=== PATIENT | female | born 1965 | race Caucasian/White ===

== ENCOUNTER 2021-05-14 14:32 | Inpatient (IN) | payer MEDICAID, OTHER ==
[~2021-05-14] VITALS: Ht 157 cm; Wt 64.0 kg
[2021-05-14] MEDS ORDERED: ACETAMINOPHEN 325 MG TABLET PO PRN (14:45)
[2021-05-14] MEDS ORDERED: ONDANSETRON 4 MG/2 ML (SDV) Z0FRAN IV PRN (14:45)
[2021-05-14] MEDS ORDERED: RT-ALBUTEROL/IPRATROPIUM 3 ML (DUONEB) VIAL IH PRN (14:45)
[2021-05-14] MEDS ORDERED: REMDESIVIR INJ 200 MG in NS (IVPB) 210 ML IV ONE (16:45)
[2021-05-14 17:02] VITALS: BP 114/63
[2021-05-14] MEDS ORDERED: MELA1TAB15 PO (18:10)
[2021-05-14] MEDS ORDERED: SODI51CR7 DT (18:10)
[2021-05-14] MEDS ORDERED: CETI10TA17 PO (18:10)
[2021-05-14] MEDS ORDERED: MULT1TAB59 PO (18:10)
[2021-05-14] MEDS ORDERED: TOLN133A TP (18:10)
[2021-05-14] MEDS ORDERED: DEXT15DR21 OP (18:10)
[2021-05-14] MEDS ORDERED: SALI45SP MM (18:10)
[2021-05-14] MEDS ORDERED: LEVE500T99 PO (18:10)
[2021-05-14] MEDS ORDERED: OMG1KC PO (18:10)
[2021-05-14] MEDS ORDERED: [UNRECOGNIZED DRUG - CODE] TP (18:10)
[2021-05-14] MEDS ORDERED: SIMV10TA26 PO (18:10)
[2021-05-14] MEDS ORDERED: PROM118S5 PO (18:10)
[2021-05-14] MEDS ORDERED: LORA-405 SL (18:10)
[2021-05-14] MEDS ORDERED: EUC50OIN2 TP (18:10)
[2021-05-14] MEDS ORDERED: TR1C15 TP (18:10)
[2021-05-14] MEDS ORDERED: LEVO112T55 PO (18:10)
[2021-05-14] MEDS ORDERED: ASCO100025 PO (18:10)
[2021-05-14] MEDS ORDERED: MELA1TAB16 PO (18:10)
[2021-05-14] MEDS ORDERED: BENZ100C18 PO (18:10)
[2021-05-14] MEDS ORDERED: GLY/85CR TP (18:10)
[2021-05-14] MEDS ORDERED: DONE10TA41 PO (18:10)
[2021-05-14] MEDS ORDERED: VITS42.53 TP (18:10)
[2021-05-14] MEDS: guaiFENesin SYRUP 100 MG/5 ML 10 ML (ROBITUSSIN SF) PO SCH ×2 (18:29→21:57)
[2021-05-14] MEDS: NS IV 1000 ML 1,000 ML IV SCH (18:29)
[2021-05-14] MEDS: ENOXAPARIN 40 MG/0.4 ML (LOVENOX) SYR SC SCH (18:48)
[2021-05-14] MEDS ORDERED: LORazepam 1 MG (ATIVAN) TAB PO PRN (19:00)
[2021-05-14] MEDS ORDERED: BENZONATATE 100 MG (TESSALON) CAPSULE PO PRN (19:00)
[2021-05-14 19:39] VITALS: BP 91/52
[2021-05-14] MEDS ORDERED: A & D OINTMENT 42.5 GM TUBE TOP SCH (20:00)
[2021-05-14] MEDS: ARTIFICAL TEARS 0.4 ML UNIT DOSE (REFRESH PLUS) OP SCH (21:49)
[2021-05-14] MEDS: SALIVA STIMULANT MOUTH SPRAY (BIOTENE) 1.5 OZ MM SCH (21:49)
[2021-05-14] MEDS: DONEPEZIL 10 MG (ARICEPT) TAB PO SCH (21:49)
[2021-05-14] MEDS: TRIAMCINOLONE 0.1% CR (KENALOG) 15 GM TUBE TP SCH (21:50)
[2021-05-14] MEDS: MELATONIN 10 MG TABLET PO SCH (22:22)
[2021-05-15 00:59] VITALS: BP 93/53
[2021-05-15 03:34] VITALS: BP 98/56
[2021-05-15] MEDS: NS IV 1000 ML 1,000 ML IV SCH ×2 (03:34→20:55)
[2021-05-15] MEDS: guaiFENesin SYRUP 100 MG/5 ML 10 ML (ROBITUSSIN SF) PO SCH ×6 (03:34→20:55)
[2021-05-15 05:57] LABS: HEMOGLOBIN 12.4 g/dL (11.5-16.0); MEAN PLATELET VOLUME 10.6 fL (9.0-12.2); WHITE BLOOD COUNT 2.8 10^3/uL (4.3-11.0)
[2021-05-15 06:07] LABS: ALBUMIN 2.9 GM/DL (3.2-4.5)
[2021-05-15 06:08] LABS: CALCIUM 7.7 MG/DL (8.5-10.1)
[2021-05-15 06:10] LABS: TOTAL PROTEIN 5.7 GM/DL (6.4-8.2)
[2021-05-15 06:12] LABS: BILIRUBIN,TOTAL 0.3 MG/DL (0.1-1.0)
[2021-05-15 06:13] LABS: CREATININE SERUM 0.68 MG/DL (0.60-1.30)
[2021-05-15 08:22] VITALS: BP 93/54
[2021-05-15] MEDS ORDERED: [UNRECOGNIZED DRUG - MIXTURE] TP SCH (09:00)
[2021-05-15] MEDS ORDERED: PETROLAT WHT TP SCH (09:00)
[2021-05-15] MEDS ORDERED: MELATONIN 10 MG TABLET PO SCH (09:00)
[2021-05-15] MEDS ORDERED: DIMETH TP SCH (09:00)
[2021-05-15] MEDS ORDERED: GLY TP SCH (09:00)
[2021-05-15] MEDS ORDERED: [UNRECOGNIZED DRUG - OTHER] TP SCH (09:00)
[2021-05-15] MEDS ORDERED: TOLNAFTATE TP SCH (09:00)
[2021-05-15] MEDS ORDERED: WATER TP SCH (09:00)
[2021-05-15] MEDS: LEVOTHYROXINE 112 MCG (LEVOTHROID) TAB PO SCH (09:43)
[2021-05-15] MEDS: LORATADINE (CLARITIN) 10 MG TAB PO SCH (09:43)
[2021-05-15] MEDS: dexAMETHasone 6 MG TAB (DECADRON) PO SCH (09:43)
[2021-05-15] MEDS: SIMvastatin 10 MG (ZOCOR) TAB PO SCH (09:43)
[2021-05-15] MEDS: ASCORBIC ACID (VIT C) 500 MG TABLET PO SCH (09:43)
[2021-05-15] MEDS: TRIAMCINOLONE 0.1% CR (KENALOG) 15 GM TUBE TP SCH ×2 (09:45→20:31)
[2021-05-15] MEDS: SALIVA STIMULANT MOUTH SPRAY (BIOTENE) 1.5 OZ MM SCH ×2 (09:45→20:30)
[2021-05-15] MEDS: OMEGA 3 (FISH OIL) 1000 MG CAP PO SCH (09:56)
[2021-05-15] MEDS: ARTIFICAL TEARS 0.4 ML UNIT DOSE (REFRESH PLUS) OP SCH ×3 (09:57→20:57)
--- NOTE | 2021-05-15 11:19 | History & Physical-Hospitalist ---
History of Present Illness HPI/Chief Complaint Patient is a 55-year-old female with past medical history of Down syndrome who is deaf and nonverbal at baseline who presented from outside hospital due to acute hypoxic respiratory failure secondary to Covid. She is unable to provide any history though she does open her eyes when touched. Caregiver, Kori, is at bedside and PPE who states that she has not been feeling well for roughly 1 week and has been more lethargic and having diarrhea. I also spoke with her guardian Edwige who states that she had been tested for times for Covid as she had a caregiver who was positive. She is unvaccinated against COVID. She had done well until yesterday when she finally tested positive and was hypoxic. She was transferred here for further care. Source: patient Exam Limitations: clinical condition Date Seen 05/15/21 Time Seen by a Provider: 11:14 Attending Physician Deepali Macedo MD PCP No,Local Physician Referring Physician Date of Admission May 14, 2021 at 16:45 Home Medications & Allergies Home Medications Reviewed patient Home Medication Reconciliation performed by pharmacy medication reconciliations wireless technician and/or nursing. Patients Allergies have been reviewed. Allergies Allergies Coded Allergies No Allergy Information Available ([id number]/22/21) Past Carzqxx-Iyhctm-Xzbosl Hx Patient Social History Marrital Status: single Employed/Student: unemployed Tobacco Use?: No Smoking Status: Never a Smoker Use of E-Cig and/or Vaping dev: No Substance use?: No Alcohol Use?: No Pt feels they are or have been: No Immunizations Up To Date Tetanus Booster (TDap): Less Than 5 Years Hepatitis A: Yes Hepatitis B: Yes Current Status status: No status: No Advance Directives: No Communicates: Gestures Primary Language: NON VERBAL Preferred Spoken Language: Syriac Is interpretation needed?: Yes Sensory deficits: Hearing impairment, Speech impairment Implanted or Applied Medical D: None Past Medical History High Cholesterol Developmental Disorder (Down Syndrome), Seizure Disorder Hypothyroidsim Hearing Impairment: Deaf Family Medical History Reviewed Nursing Family Hx Unable to obtain family history due to patient's nonverbal status Review of Systems ROS-Unable to Obtain: limited and per her caregivers Constitutional: fever, malaise Respiratory: cough, short of breath Gastrointestinal: diarrhea Physical Exam Physical Exam Vital Signs Vital Signs - First Documented 05/14/21 05/14/21 17:02 19:39 Temp 37.1 Pulse 66 Resp 22 B/P (MAP) 114/63 (80) Pulse Ox 95 O2 Delivery Nasal Cannula O2 Flow Rate 2.00 Capillary Refill : Height, Weight, BMI Height: '" Weight: lbs. oz. kg; 25.96 BMI Method: General Appearance: No Apparent Distress, Chronically ill, Other (drowsy) HEENT: PERRL/EOMI; No Scleral Icterus (L), No Scleral Icterus (R); Other (poor dentition) Neck: Normal Inspection, Supple Respiratory: Lungs Clear, No Accessory Muscle Use, Other (on 4lpm NC) Gastrointestinal: Normal Bowel Sounds, Non Tender, Soft Results Results/Procedures Labs Laboratory Tests 05/15/21 05:45 Patient resulted labs reviewed. Assessment/Plan Admission Diagnosis Acute hypoxic respiratory failure due to COVID19 Admission Status: Inpatient Order (span 2 midnights) Reason for Inpatient Admission: see below Assessment and Plan Acute hypoxic respiratory failure due to COVID19 Currently on 4lpm NC, up from 2lpm but satting 99% so will try to wean down Continue Remdesivir Continie decadron MAT protocol IS Lovenox Discussed with her guardian yesterday Down Syndrome Nonverbal and deaf at baseline Private Investigator at bedside DVt ppx: Lovenox Diagnosis/Problems Diagnosis/Problems (1) COVID-19 Status: Acute (2) Acute respiratory failure Status: Acute Qualifiers: Respiratory failure complication: hypoxia Qualified Codes: J96.01 - Acute respiratory failure with hypoxia (3) HLD (hyperlipidemia) Status: Chronic Qualifiers: Hyperlipidemia type: unspecified Qualified Codes: E78.5 - Hyperlipidemia, unspecified (4) Hypothyroidism Status: Chronic Qualifiers: Hypothyroidism type: unspecified Qualified Codes: E03.9 - Hypothyroidism, unspecified (5) Down syndrome Status: Chronic (6) Deaf, nonspeaking Status: Chronic (7) Seizure disorder Status: Chronic DEEPALI MACEDO MD May 15, 2021 11:19
[2021-05-15 12:03] VITALS: BP 98/64
[2021-05-15 16:00] VITALS: BP 98/64
[2021-05-15] MEDS: ENOXAPARIN 40 MG/0.4 ML (LOVENOX) SYR SC SCH (16:30)
[2021-05-15] MEDS: REMDESIVIR INJ 100 MG in NS (IVPB) 230 ML IV SCH (16:30)
[2021-05-15 20:00] VITALS: BP 98/54
[2021-05-15] MEDS: DONEPEZIL 10 MG (ARICEPT) TAB PO SCH (20:29)
[2021-05-15] MEDS: MELATONIN 10 MG TABLET PO SCH (20:29)
[2021-05-16] VITALS (7 sets, daily range): BP systolic 84–143; BP diastolic 49–85
[2021-05-16] MEDS: NS IV 1000 ML 1,000 ML IV SCH ×5 (01:09→21:02)
[2021-05-16] MEDS: guaiFENesin SYRUP 100 MG/5 ML 10 ML (ROBITUSSIN SF) PO SCH ×6 (03:24→21:37)
[2021-05-16 06:04] LABS: WHITE BLOOD COUNT 3.6 10^3/uL (4.3-11.0)
[2021-05-16 06:12] LABS: ALBUMIN 2.8 GM/DL (3.2-4.5)
[2021-05-16 06:13] LABS: CALCIUM 7.8 MG/DL (8.5-10.1)
[2021-05-16 06:14] LABS: TOTAL PROTEIN 5.6 GM/DL (6.4-8.2)
[2021-05-16 06:16] LABS: BILIRUBIN,TOTAL 0.3 MG/DL (0.1-1.0)
[2021-05-16 06:18] LABS: CREATININE SERUM 0.71 MG/DL (0.60-1.30)
[2021-05-16] MEDS: LORATADINE (CLARITIN) 10 MG TAB PO SCH (10:15)
[2021-05-16] MEDS: ASCORBIC ACID (VIT C) 500 MG TABLET PO SCH (10:15)
[2021-05-16] MEDS: LEVOTHYROXINE 112 MCG (LEVOTHROID) TAB PO SCH (10:16)
[2021-05-16] MEDS: dexAMETHasone 6 MG TAB (DECADRON) PO SCH (10:16)
[2021-05-16] MEDS: ARTIFICAL TEARS 0.4 ML UNIT DOSE (REFRESH PLUS) OP SCH ×3 (10:17→21:01)
[2021-05-16] MEDS: OMEGA 3 (FISH OIL) 1000 MG CAP PO SCH (10:17)
[2021-05-16] MEDS: TRIAMCINOLONE 0.1% CR (KENALOG) 15 GM TUBE TP SCH ×2 (10:17→21:02)
[2021-05-16] MEDS: SIMvastatin 10 MG (ZOCOR) TAB PO SCH (10:17)
[2021-05-16] MEDS: SALIVA STIMULANT MOUTH SPRAY (BIOTENE) 1.5 OZ MM SCH ×2 (10:19→21:02)
--- NOTE | 2021-05-16 10:57 | Progress Note - Hospitalist ---
Subjective HPI/CC On Admission Date Seen by Provider: May 16, 2021 Time Seen by Provider: 10:53 Patient is a 55-year-old female with past medical history of Down syndrome who is deaf and nonverbal at baseline who presented from outside hospital due to acute hypoxic respiratory failure secondary to Covid. She is unable to provide any history though she does open her eyes when touched. Caregiver, Kori, is at bedside and PPE who states that she has not been feeling well for roughly 1 week and has been more lethargic and having diarrhea. I also spoke with her guardian Edwige who states that she had been tested for times for Covid as she had a caregiver who was positive. She is unvaccinated against COV ID. She had done well until yesterday when she finally tested positive and was hypoxic. She was transferred here for further care. Subjective/Events-last exam Pt remains nonverbal. Caregiver at bedside says she seems much better today. More alert. off oxygen. Up to commode. Objective Exam Vital Signs Vital Signs Date Time Temp Pulse Resp B/P (MAP) Pulse Ox O2 Delivery O2 Flow Rate FiO2 05/16/21 08:55 36.7 47 18 84/54 (64) 92 Room Air 0.00 Capillary Refill : General Appearance: No Apparent Distress, Chronically ill Respiratory: Lungs Clear, No Accessory Muscle Use, Other (off supplemental oxygen today) Cardiovascular: No Murmur, Bradycardia Neurologic/Psychiatric: Alert, Other (deaf and nonverbal) Results/Procedures Lab Laboratory Tests 05/16/21 05:51 Patient resulted labs reviewed. Assessment/Plan Assessment and Plan Assess & Plan/Chief Complaint Acute hypoxic respiratory failure due to COVID19 Weaned off oxygen yesterday Home oxygen study prior to DC Continue Remdesivir Continie decadron MAT protocol IS Lovenox Down Syndrome Nonverbal and deaf at baseline Industrial Hygiene Technician at bedside in PPE DVt ppx: Lovenox Diagnosis/Problems Diagnosis/Problems (1) COVID-19 Status: Acute (2) Acute respiratory failure Status: Acute Qualifiers: Respiratory failure complication: hypoxia Qualified Codes: J96.01 - Acute respiratory failure with hypoxia (3) HLD (hyperlipidemia) Status: Chronic Qualifiers: Hyperlipidemia type: unspecified Qualified Codes: E78.5 - Hyperlipidemia, unspecified (4) Hypothyroidism Status: Chronic Qualifiers: Hypothyroidism type: unspecified Qualified Codes: E03.9 - Hypothyroidism, unspecified (5) Down syndrome Status: Chronic (6) Deaf, nonspeaking Status: Chronic (7) Seizure disorder Status: Chronic DEEPALI FOFANA MD May 16, 2021 10:57
[2021-05-16] MEDS ORDERED: LOPERAMIDE 2 MG (IMODIUM) TABLET PO PRN (15:15)
[2021-05-16] MEDS ORDERED: LOPERAMIDE 2 MG (IMODIUM) TABLET ONE (15:18)
[2021-05-16] MEDS: ENOXAPARIN 40 MG/0.4 ML (LOVENOX) SYR SC SCH (15:25)
[2021-05-16] MEDS: REMDESIVIR INJ 100 MG in NS (IVPB) 230 ML IV SCH (16:00)
[2021-05-16] MEDS: MELATONIN 10 MG TABLET PO SCH (21:01)
[2021-05-16] MEDS: DONEPEZIL 10 MG (ARICEPT) TAB PO SCH (21:01)
[2021-05-17 04:00] VITALS: BP 118/72
[2021-05-17] MEDS: NS IV 1000 ML 1,000 ML IV SCH (04:13)
[2021-05-17] MEDS: guaiFENesin SYRUP 100 MG/5 ML 10 ML (ROBITUSSIN SF) PO SCH ×5 (04:13→15:14)
[2021-05-17 06:25] LABS: HEMOGLOBIN 13.6 g/dL (11.5-16.0)
[2021-05-17 06:27] LABS: MEAN PLATELET VOLUME 11.2 fL (9.0-12.2); WHITE BLOOD COUNT 3.4 10^3/uL (4.3-11.0)
[2021-05-17 06:43] LABS: POTASSIUM 3.8 MMOL/L (3.6-5.0)
[2021-05-17 06:45] LABS: CALCIUM 8.5 MG/DL (8.5-10.1)
[2021-05-17 06:46] LABS: TOTAL PROTEIN 6.3 GM/DL (6.4-8.2)
[2021-05-17 06:47] LABS: BILIRUBIN,TOTAL 0.6 MG/DL (0.1-1.0)
[2021-05-17 06:49] LABS: CREATININE SERUM 0.72 MG/DL (0.60-1.30)
[2021-05-17 08:14] VITALS: BP 95/57
[2021-05-17] MEDS: SALIVA STIMULANT MOUTH SPRAY (BIOTENE) 1.5 OZ MM SCH (08:20)
[2021-05-17] MEDS: ARTIFICAL TEARS 0.4 ML UNIT DOSE (REFRESH PLUS) OP SCH ×2 (08:21→13:32)
[2021-05-17] MEDS: dexAMETHasone 6 MG TAB (DECADRON) PO SCH (08:21)
[2021-05-17] MEDS: OMEGA 3 (FISH OIL) 1000 MG CAP PO SCH (08:22)
[2021-05-17] MEDS: LEVOTHYROXINE 112 MCG (LEVOTHROID) TAB PO SCH (08:22)
[2021-05-17] MEDS: ASCORBIC ACID (VIT C) 500 MG TABLET PO SCH (08:22)
[2021-05-17] MEDS: SIMvastatin 10 MG (ZOCOR) TAB PO SCH (08:22)
[2021-05-17] MEDS: LORATADINE (CLARITIN) 10 MG TAB PO SCH (08:22)
[2021-05-17] MEDS: TRIAMCINOLONE 0.1% CR (KENALOG) 15 GM TUBE TP SCH (08:23)
[2021-05-17 12:00] VITALS: BP 100/60
--- NOTE | 2021-05-17 13:13 | Physical Therapy Progress Note ---
Therapy Progress Note Spoke with nurse about patient and need for PT. Nurse reports patient is able to ambulate to the bathroom and has a caregiver 13/02. Nurse reports patient is at baseline of function. No PT needed at this time. KRYSTYNA THOMAS PT May 17, 2021 13:13
[2021-05-17] MEDS: ENOXAPARIN 40 MG/0.4 ML (LOVENOX) SYR SC SCH (13:33)
--- NOTE | 2021-05-17 13:37 | Discharge Summary ---
Discharge Summary Hospital Course Problems/Dx: (1) COVID-19 Status: Acute (2) Acute respiratory failure Status: Acute Qualifiers: Qualified Codes: J96.01 - Acute respiratory failure with hypoxia (3) HLD (hyperlipidemia) Status: Chronic Qualifiers: Qualified Codes: E78.5 - Hyperlipidemia, unspecified (4) Hypothyroidism Status: Chronic Qualifiers: Qualified Codes: E03.9 - Hypothyroidism, unspecified (5) Down syndrome Status: Chronic (6) Deaf, nonspeaking Status: Chronic (7) Seizure disorder Status: Chronic Hospital Course Date of Admission: May 14, 2021 at 16:45 Admission Diagnosis : Acute respiratory failure due to COVID-19 Family Physician/Provider: Silver Wilkes Physician Date of Discharge: 05/17/21 Discharge Diagnosis: Acute respiratory failure due to COVID-19 Hospital Course: Julieta Thornton is a 55 year old female with PMH Down Syndrome, deaf and nonverbal, who was admitted with acute respiratory failure due to COVID-19. She was treated with Decadron and Remdesivir. Her oxygen requirement improved. She was requiring 2 L with exertion and was set up with home oxygen. She was discharged in stable condition. Labs and Pending Lab Test: Laboratory Tests 05/17/21 06:15: White Blood Count 3.4L, Red Blood Count 4.31, Hemoglobin 13.6, Hematocrit 40, Mean Corpuscular Volume 94, Mean Corpuscular Hemoglobin 32, Mean Corpuscular Hemoglobin Concent 34, Red Cell Distribution Width 12.5, Platelet Count 141, Mean Platelet Volume 11.2, Percent Immature Platelet Fraction 8.6H, Sodium Level 139, Potassium Level 3.8, Chloride Level 106, Carbon Dioxide Level 23, Anion Gap 10, Blood Urea Nitrogen 15, Creatinine 0.72, Estimat Glomerular Filtration Rate 83, BUN/Creatinine Ratio 21, Glucose Level 108H, Calcium Level 8.5, Corrected Calcium 9.3, Total Bilirubin 0.6, Aspartate Amino Transf (AST/SGOT) 39H, Alanine Aminotransferase (ALT/SGPT) 32, Alkaline Phosphatase 58, Total Protein 6.3L, Albumin 3.0L Microbiology 05/15/21 C. difficile GDH Antigen & Toxins - Final, Complete Home Meds Active Reported Promethazine-Dm Syrup (D-Methorphan Hb/Prometh HCl) 118 Ml Syrup 118 Ml PO Q4H PRN Tessalon Perles (Benzonatate) 100 Mg Capsule 100 Mg PO TID PRN A and D Ointment (Vits A and D/White Pet/Lanolin) 42.5 Gm Oint...g. 42.5 Gm TP DAILY PRN Vitamin C (Ascorbic Acid) 1,000 Mg Tablet.er 1,000 Mg PO DAILY Triamcinolone Acetonide 0.1% Cream (Triamcinolone Acet) 15 Gm Cr 1 Gm TP BID Tinactin (Tolnaftate) 133 Gm Aero.powd 133 Gm TP DAILY Simvastatin 10 Mg Tablet 10 Mg PO DAILY Sf 5000 Plus (Sodium Fluoride) 51 Gm Cream..g. 51 Gm DT DAILY Sebex Shampoo (Salicylic Acid/Sulfur) 118 Ml Shampoo 118 Ml TP DAILY Ativan (Lorazepam) 1 Mg Tablet 1 Mg SL Q2H PRN 7 Days Melatonin 5 mg Tablet (Melatonin/Pyridoxine HCl (B6)) 1 Each Tablet 1 Each PO PRN Melatonin 5 mg Tablet (Melatonin/Pyridoxine) 1 Each Tablet 1 Each PO DAILY Levothyroxine Sodium 112 Mcg Tablet 112 Mcg PO DAILY Keppra (Levetiracetam) 500 Mg Tablet 500 Mg PO BID Fish Oil 1,000 mg Capsule ([place] 3 Polyunsat Fatty Acids) 1,000 Mg Cap 1,000 Mg PO DAILY Donepezil HCl 10 Mg Tablet 10 Mg PO HS Vicks Babyrub Soothing Oint (Euc Oil/Aloe/Lav&Rosem Oils/Pt) 50 Gm Oint...g. 50 Gm TP DAILY Cetirizine HCl 10 Mg Tablet 10 Mg PO DAILY Cetaphil Moisturizing Cream (Gly/Dimeth/Petrolat,Wht/Water) 85 Gm Cream..g. 85 Gm TP DAILY Cerovite Senior Tablet (Multivitamin W-Minerals/Lutein) 1 Each Tablet 1 Each PO DAILY Biotene Moisturizing Mouth (Saliva Stimulant Agents Comb.3) 1 Each [place] 1 Each MM BID Artificial Tears Eye Drops (Dextran 70/Hypromellose) 15 Ml Drops 1 Drops OP TID Assessment/Pt Instructions Take medications as prescribed. Follow up with your PCP. Return with worsening shortness of breath or if you feel like you are getting worse. Discharge Planning: <30 minutes discharge planning Discharge Instructions Discharge Diet: No Restrictions Activity as Tolerated: Yes Discharge Physical Examination Vital Signs Vital Signs Date Time Temp Pulse Resp B/P (MAP) Pulse Ox O2 Delivery O2 Flow Rate FiO2 05/17/21 12:00 36.1 51 20 100/60 (73) 95 Room Air 05/16/21 13:44 2.00 General Appearance: No Apparent Distress, Obese Respiratory: Lungs Clear, Normal Breath Sounds, No Respiratory Distress Cardiovascular: Regular Rate, Rhythm, No Edema, No Murmur Gastrointestinal: Normal Bowel Sounds, Non Tender, Soft Extremity: Normal Inspection, Non Tender, No Pedal Edema Skin: Normal Color, Warm/Dry Neurologic/Psychiatric: Alert, Motor Weakness Allergies: Coded Allergies: No Allergy Information Available (Unverified , 05/14/21) Discharge Summary Date of Admission May 14, 2021 at 16:45 Date of Discharge Discharge Date: May 17, 2021 Discharge Time: 11:50 Admission Diagnosis Acute hypoxic respiratory failure due to COVID19 Discharge Diagnosis (1) COVID-19 Status: Acute (2) Acute respiratory failure Status: Acute Qualifiers: Qualified Codes: J96.01 - Acute respiratory failure with hypoxia (3) HLD (hyperlipidemia) Status: Chronic Qualifiers: Qualified Codes: E78.5 - Hyperlipidemia, unspecified (4) Hypothyroidism Status: Chronic Qualifiers: Qualified Codes: E03.9 - Hypothyroidism, unspecified (5) Down syndrome Status: Chronic (6) Deaf, nonspeaking Status: Chronic (7) Seizure disorder Status: Chronic KEI DUMONT MD May 17, 2021 13:36
[2021-05-17 15:30] VITALS: BP 100/60
== END 2021-05-17 15:32 | disposition home or self-care (01) | DRG 177 ==
LOC: 4TH 16:45
PROVIDERS: ADMIT Family Medicine; ATTEND Family Medicine
PROC: XW033E5 Introduction of Remdesivir Anti-infective into Peripheral Vein, Percutaneous Approach, New Technology Group 5 (ICD-10-PCS; principal; 2021-05-15)
DX: U07.1 COVID-19 (principal); J96.01 Acute respiratory failure with hypoxia; Q90.9 Down syndrome, unspecified; H91.3 Deaf nonspeaking, not elsewhere classified; E78.00 Pure hypercholesterolemia, unspecified; G40.909 Epilepsy, unspecified, not intractable, without status epilepticus; E03.9 Hypothyroidism, unspecified; Z73.0 Burn-out
CPT/HCPCS: 36415; 80053; 85027; 87324; 87449; 94760; 94761